=== PATIENT | male | born 1960 | race African-American/Black ===

== ENCOUNTER 2024-01-29 10:04 | Outpatient (AMB) | payer MEDICARE, MEDICAID, SELFPAY ==
[2024-01-29 10:05] VITALS: BP 130/100; PULSE 86; TEMP 36.3; O2SAT 97; BMI 38.4
--- NOTE | 2024-01-29 10:05 | MHC.OFFWIV ---
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) Intake Note: pt is here today for rash on both hands started 2 weeks Patient Tobacco Use Status: Current everyday Tobacco user Allergies No Known Allergies Allergy (Verified 01/29/24 10:11) Medication List - Last Reconciled 01/29/24 by DAVIDE Jeronimo atorvastatin 40 mg PO DAILY cetirizine 10 mg PO DAILY cholecalciferol (vitamin D3) 50 mcg PO DAILY clonidine HCl mg PO DAILY docusate sodium 100 mg PO BID fluticasone propionate 50 mcg/actuation sprays intranasal multivitamin with folic acid 400 mcg (Tab-A-Zander) 1 tab PO DAILY quetiapine 400 mg PO BEDTIME quetiapine 100 mg PO BEDTIME venlafaxine ER 150 mg PO DAILY venlafaxine ER 75 mg PO DAILY Do you need a note to return to daycare/school/sports/work: No HPI HPI Comments History of Present Illness Details Patient is a 63-year-old male in today for sick visit. He states that 1 week prior to visit he woke up from sleeping overnight and noticed he had what he thought was a bug bite on the dorsal aspect of his right hand. He states that since that he has developed a rash over his 1st and 2nd knuckles on the right hand. Up he also reports a rash now developing on his left hand in the same area, however he did not notice any bug bite. Patient has history of psoriasis. States that the rashes have a slight burning feeling. Has not used any medication or creams for relief. Patient denies numbness or tingling. 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 Patient has full range of motion. No erythema or discharge, no signs of infection. [facility] Medical History (Updated 01/29/24 @ 10:36 by DAVIDE Jeronimo) Depression PTSD (post-traumatic stress disorder) Social History Patient Tobacco Use Status: Current everyday Tobacco user Review of Systems Const All systems reviewed & are unremarkable except as noted in HPI and below Neuro Denies Sensory deficit (Neuro) Physical Exam Vital Signs: Last Vital Signs Temp 97.3 F 01/29/24 10:05 Pulse 86 01/29/24 10:05 BP 130/100 H 01/29/24 10:05 Pulse Ox 97 01/29/24 10:05 Oxygen Delivery Method Room Air 01/29/24 10:05 BMI result Body Mass Index 38.4 Const General: cooperative and no acute distress Orientation/consciousness: patient oriented x3 Limitations: no limitations Resp Effort & Inspection: normal respiratory effort Skin General skin exam: dry skin (bilateral hands. ), no erythema, no purpura and other (scaling) Neuro General: patient oriented x3 Motor exam (neuro): 5/5 motor strength present throughout Sensory Exam: No Sensory deficit (Neuro) Psych Thought content: Normal thought content present Insight: Good insight present (Psych) Judgement: Good judgement present (Psych) Assessment & Plan Assessment & Plan (1) Psoriasis: Comment: Will give clobetasol topical cream. Code(s): L40.9 - Psoriasis, unspecified Plan: Take your medications as prescribed. If you were prescribed antibiotics today, it is important that you take your medication to their entirety, do not skip any doses, do not finish them early. Follow-up with your primary care provider this week. Return to the emergency department with new or worsening symptoms. Such as fevers, chills, chest pain, shortness of breath, nausea, vomiting, dizziness, headache, vision changes, lethargy In case of emergency call 911 Plan follow up with pcp. Medications: New ibuprofen 400 mg PO Q8H PRN 30 tabs 0RF pain clobetasol 0.05% 1 appl topical BID 2 weeks 30 grams 0RF Coding Level of Care Code Est Pt Level 3 (28754) Diagnoses Psoriasis L40.9 Time Spent (min) 27
[2024-01-29 10:33] VITALS: BP 118/80
== END 2024-01-29 10:35 | disposition home or self-care (01) ==
PROVIDERS: Visit Provider Nurse Practitioner Primary Care
DX: L40.9 Psoriasis, unspecified (principal)
CPT/HCPCS: 99213

== ENCOUNTER 2024-02-10 09:57 | Emergency (ER) | payer MEDICARE, MEDICAID, SELFPAY ==
[2024-02-10 10:08] VITALS: BP 138/88; PULSE 84; RESP 18; TEMP 36.6; O2SAT 98; BMI 38.0
[2024-02-10 10:46] LABS: MANUAL DIFF FLAG NO
[2024-02-10 10:47] LABS: Basophils Percent Auto 0.5 % (0-2); Eosinophils Absolute Auto 0.1 X10*3/uL (0.0-0.4); Eosinophils Percent Auto 2.3 % (0-4); Hematocrit 42.4 % (42.0-52.0); Hemoglobin 14.6 g/dl (14.0-18.0); Imm Gran Abs Auto 0.03 X10*3/uL (0.00-0.03); Imm Gran Pct Auto 0.5 % (0.0-0.4); Lymphocytes Absolute Auto 1.8 X10*3/uL (1.2-4.9); Lymphocytes Percent Auto 32.3 % (20-40); Mean Corpuscular HGB Conc 34.4 g/dl (31.0-36.0); Mean Corpuscular Hemoglobin 30.9 pg (27.0-33.0); Mean Corpuscular Volume 89.6 fL (80.0-98.0); Mean Platelet Volume 9.7 fL (9.4-12.4); Monocytes Absolute Auto 0.4 X10*3/uL (0.1-1.2); Monocytes Percent Auto 7.8 % (2-11); Neutrophils Absolute Auto 3.2 x10*3/uL (2.0-8.3); Neutrophils Percent Auto 56.6 % (45-73); Platelet Count 170 X10*3/uL (160-400); Red Blood Count 4.73 X10*6/uL (4.60-5.80); Red Cell Distribution Width 13.9 % (11.0-16.0); White Blood Count 5.6 X10*3/uL (4.8-10.8)
[2024-02-10 11:12] LABS: Alanine Aminotransferase 22 U/L (0-40); Albumin Level 3.9 g/dL (3.5-5.0); Alkaline Phosphatase 101 U/L (39-117); Anion Gap 16 (12-20); Aspartate Amino Transferase 22 U/L (5-37); Bilirubin Total 0.4 mg/dL (0.0-1.0); Blood Urea Nitrogen 12 mg/dL (9-16); Calcium 9.4 mg/dL (8.4-10.2); Carbon Dioxide 20 mmol/L (22-29); Chloride 107 mmol/L (96-108); Creatinine Clr Calc Pharmacy 126.9; Estimated Glomerular Filt Rate > 60; Glucose Random 151 mg/dL (60-115); Potassium 3.9 mmol/L (3.3-5.1); Sodium 139 mmol/L (135-145); Total Protein 7.8 g/dL (6.5-8.0)
--- NOTE | 2024-02-10 14:27 | ED.GENADULT ---
HPI - General Adult General Chief complaint: Dental/Oral Stated complaint: Facial swelling R side, tingling R hand Time Seen by Provider: 02/10/24 13:01 Source: patient and RN notes reviewed Mode of arrival: ambulatory Limitations: no limitations History of Present Illness ED Provider: Facial swelling, rash HPI narrative: This is a 63 year old male, with a history of schizophrenia, who presents to the emergency department with complaints of right sided facial swelling, eye drainage and ?rash to right hand and left hand. Patient states that about a week and a half ago he felt as if he was bit by an insect. He states that he notice area of swelling and went to a walk in clinic where they attributed rash to a fungus and prescribed his antifungal cream. He states he is now seeing a rash on his bilateral hands. No itchiness or pain to rash. He also states that two days ago he woke up and felt some eye drainage from his right eye with tingling like sensation to his entire face. Reporting some congestion. He broke a tooth 1 year ago on the right upper side - unsure if this is related, no dental pain. He denies any fevers, chills, difficulty swallowing, shortness of breath, abdominal pain, nausea, vomiting, or diarrhea. He denies taking any medications at home to treat his current symptoms. Denies history of similar symptoms in the past. no other complaints are concerns at this time. MD complaint: rash Onset (ago): day(s) Location: face and upper extremity Radiation: non-radiation Relieving factors: none Exacerbating factors: none Associated symptoms: denies other symptoms Treatments prior to arrival: none Related Data Home Medications ?Medication ?Instructions ?Recorded ?Confirmed atorvastatin 40 mg tablet 40 mg PO DAILY 01/29/24 01/29/24 cetirizine 10 mg tablet 10 mg PO DAILY 01/29/24 01/29/24 cholecalciferol (vitamin D3) 50 50 mcg PO DAILY 01/29/24 01/29/24 mcg (2,000 unit) tablet clonidine HCl 0.1 mg tablet mg PO DAILY 01/29/24 01/29/24 docusate sodium 100 mg capsule 100 mg PO BID 01/29/24 01/29/24 fluticasone propionate 50 spray intranasal 01/29/24 01/29/24 mcg/actuation nasal spray,suspension multivitamin with folic acid 400 1 tab PO DAILY 01/29/24 01/29/24 mcg tablet (Tab-A-Zander) quetiapine 100 mg tablet 100 mg PO BEDTIME 01/29/24 01/29/24 quetiapine 400 mg tablet 400 mg PO BEDTIME 01/29/24 01/29/24 venlafaxine 150 mg 150 mg PO DAILY 01/29/24 01/29/24 capsule,extended release 24 hr venlafaxine 75 mg capsule,extended 75 mg PO DAILY 01/29/24 01/29/24 release 24 hr Previous Rx's ?Medication ?Instructions ?Recorded clobetasol 0.05 % topical cream 1 appl topical BID 2 weeks #30 01/29/24 grams ibuprofen 400 mg tablet 400 mg PO Q8H PRN pain #30 tabs 01/29/24 amoxicillin 875 mg-potassium 1 tab PO BID 7 days #14 tabs 02/10/24 clavulanate 125 mg tablet diphenhydramine HCl 25 mg tablet 25 - 50 mg (1 - 2 x 25 mg) PO 02/10/24 (Benadryl Allergy) Q6-8H PRN allergy symptoms #20 tabs prednisone 20 mg tablet 40 mg (2 x 20 mg) PO DAILY 5 days 02/10/24 #10 tabs Allergies Allergy/AdvReac Type Severity Reaction Status Date / Time No Known Allergies Allergy Verified 02/10/24 10:32 Review of Systems Review of Systems: Yes all other systems are reviewed and are negative Constitutional: Constitutional: Reports as per [facility] Past Medical History Medical History (Updated 02/11/24 @ 00:01 by Carlos Moreno) Depression PTSD (post-traumatic stress disorder) Social History Social History Patient Tobacco Use Status: Current everyday Tobacco user Advance Directives: No Advance Directives Information Provided: No Physical Exam ED Vital Signs: Vital Signs - 24 hr 02/10/24 10:08 02/10/24 15:25 Temperature 98 F 97.6 F Pulse Rate 84 69 Respiratory Rate 18 20 Blood Pressure 138/88 141/94 H Pulse Oximetry 98 97 Oxygen Delivery Method Room Air Room Air BMI result Body Mass Index 38.0 Const General: cooperative, comfortable and no acute distress Orientation/consciousness: patient oriented x3 Limitations: no limitations HENMT Other: No obvious facial swelling, erythema or rash present. Very minimal right upper eyelid edema noted. Conjunctiva is noninjected. Sinuses with mild ttp overlying maxillary sinuses. Oral pharynx wildly patent, speaking in full sentences. Dentition in poor repair, no TTP throughout teeth, no dental abscess noted. Facial sensation intact - however reporting decreased throughout. Head: Yes normal to inspection, Yes normocephalic and Yes atraumatic Ears: hearing grossly normal bilaterally General nose exam: Normal external nose present Face and sinus: Yes normal facial exam Mouth: Normal oral and palatal mucosa present, oropharynx normal and moist mucous membranes Throat: Yes posterior oropharynx normal Eyes General: appearance normal, both eyes and all related structures Eyelids: Yes eyelids normal Conjunctivae: conjunctivae normal Sclerae: sclerae normal Pupils: Equal, round and reactive pupils present EOM: EOMs intact bilaterally Neck Neck: Yes normal visual inspection, Yes full ROM and Yes no lymphadenopathy Lymphatic: no lymphadenopathy noted Chest Chest palpation & inspection: normal inspection of the chest Resp Effort & Inspection: normal respiratory effort and able to speak in complete sentences Auscultation: clear to auscultation bilaterally, no crackles, no rales, no rhonchi and no wheezes Cardio Rate: regular rate Rhythm: regular rhythm Heart sounds: S1 normal heart sound present and S2 normal heart sound present GI Inspection: Yes normal to inspection Skin Other: dorsum of bilateral hands, overlying the wrist there are approximately 3cm macular rash, blanchable, with slight hypopigmentation, no erythema or warmth, no raised borderers, no drainage. Neuro General: patient oriented x3 and moves all extremities Cranial nerves: Yes CN's II-XII intact bilaterally and Yes Equal, round and reactive pupils present Cognition (Neuro): normal cognition Gait exam (Neuro): Normal gait present Motor exam (neuro): 5/5 motor strength present throughout and Pronator motor function not present Coordination: [id number] test normal and [id number] test normal Romberg Test: Negative Extrem General: Yes normal to inspection Right upper extremity: normal to inspection Left upper extremity: normal to inspection Right lower extremity: normal to inspection Left lower extremity: normal to inspection Medical Decision Making Medical Decision Making MDM Narrative: 63 y/o M presenting to the ER with multiple complaints. He is alert and oriented x 4. Neurologically intact. BL wrists with macular rash with surrounding hypopigmentation, as well as slight edema noted to right eyelid with some TTP overlying the maxilla. DDX sinusitus, contact dermatitis, atopic dermatitis, cellulitis. He expresses tingling throughout face without any neurologic deficits. No dental abscess. Vitals are stable. Labs reasurring. Slight hyperglycemia - pt advised to f/u with PCP. Will treat as possible allergic vs sinusitis like symptoms with course of prednisone and antibiotics. Given strict return precautions. He understands and agrees with plan. Stable for d/c. Differential Diagnosis Differential Diagnoses: The differential diagnosis associated with the presentation includes see above Lab Data MDM Lab Attestation statement: I reviewed the patient's lab results. No leukocytosis, stable H&H, mild hyperglycemia at 151 02/10/24 10:42 02/10/24 10:42 Labs: Lab Results 02/10/24 Range/Units 10:42 WBC 5.6 (4.8-10.8) X10*3/uL RBC 4.73 (4.60-5.80) X10*6/uL Hgb 14.6 (14.0-18.0) g/dl Hct 42.4 (42.0-52.0) % MCV 89.6 (80.0-98.0) fL MCH 30.9 (27.0-33.0) pg MCHC 34.4 (31.0-36.0) g/dl RDW 13.9 (11.0-16.0) % Plt Count 170 (160-400) X10*3/uL MPV 9.7 (9.4-12.4) fL Immature Gran % (Auto) 0.5 H (0.0-0.4) % Neut % (Auto) 56.6 (45-73) % Lymph % (Auto) 32.3 (20-40) % [place] % (Auto) 7.8 (2-11) % Eos % (Auto) 2.3 (0-4) % Baso % (Auto) 0.5 (0-2) % Lymph # (Auto) 1.8 (1.2-4.9) X10*3/uL [place] # (Auto) 0.4 (0.1-1.2) X10*3/uL Eos # (Auto) 0.1 (0.0-0.4) X10*3/uL Baso # (Auto) 0.0 (0.0-0.2) X10*3/uL Abs Immat Gran (auto) 0.03 (0.00-0.03) X10*3/uL Absolute Neuts (auto) 3.2 (2.0-8.3) x10*3/uL Absolute Nucleated RBC 0.000 (0.0-0.012) X10*3/uL Nucleated RBC % (auto) 0.0 (0.0-0.2) /100WBC Sodium 139 (135-145) mmol/L Potassium 3.9 (3.3-5.1) mmol/L Chloride 107 (96-108) mmol/L Carbon Dioxide 20 L (22-29) mmol/L Anion Gap 16 (12-20) BUN 12 (9-16) mg/dL Creatinine 0.94 (0.5-1.4) mg/dL Estim Creat Clear Calc 126.9 Estimated GFR > 60 Random Glucose 151 H (60-115) mg/dL Calcium 9.4 (8.4-10.2) mg/dL Total Bilirubin 0.4 (0.0-1.0) mg/dL AST 22 (5-37) U/L ALT 22 (0-40) U/L Alkaline Phosphatase 101 (39-117) U/L Total Protein 7.8 (6.5-8.0) g/dL Albumin 3.9 (3.5-5.0) g/dL Discharge Plan Discharge Clinical Impression: Facial swelling, Rash Patient Disposition: Home, Self-Care Instructions: Acute Rash (ED) Additional Instructions: You may be experiencing a type of allergic reaction, however I am also treating you for possible sinus infection. Please take prescribed medication as directed, take antibiotic as prescribed. Take prednisone as directed. Please be advised that this can increase your blood glucose level. I am also prescribing Benadryl, this can cause drowsiness, do not drink alcohol or drive while taking this medication. Drink plenty of fluids get plenty of rest. Follow-up with your primary care physician. If any new or worsening symptoms occur including but not limited to severe headaches, dizziness, lightheadedness, blurred vision, worsening swelling or numbness and tingling, please return for re-evaluation. Prescriptions: New amoxicillin-pot clavulanate 875-125 mg tablet 1 tab PO BID 7 Days Qty: 14 0RF prednisone 20 mg tablet 40 mg PO DAILY 5 Days Qty: 10 0RF diphenhydramine HCl [Benadryl Allergy] 25 mg tablet 25 - 50 mg PO Q6-8H PRN (Reason: allergy symptoms) Qty: 20 0RF No Action cholecalciferol (vitamin D3) 50 mcg (2,000 unit) tablet 50 mcg PO DAILY docusate sodium 100 mg capsule 100 mg PO BID quetiapine 400 mg tablet 400 mg PO BEDTIME fluticasone propionate 50 mcg/actuation spray,suspension intranasal quetiapine 100 mg tablet 100 mg PO BEDTIME venlafaxine 150 mg capsule,extended release 24hr 150 mg PO DAILY venlafaxine 75 mg capsule,extended release 24hr 75 mg PO DAILY atorvastatin 40 mg tablet 40 mg PO DAILY clonidine HCl 0.1 mg tablet PO DAILY cetirizine 10 mg tablet 10 mg PO DAILY multivitamin with folic acid [Tab-A-Zander] 400 mcg tablet 1 tab PO DAILY clobetasol 0.05 % cream 1 appl topical BID 14 Days Qty: 30 0RF ibuprofen 400 mg tablet 400 mg PO Q8H PRN (Reason: pain) Qty: 30 0RF Interventions: ED Discharge Assessment Last Done: 02/10/24 15:25 Discharge Date/Time: 02/10/24 15:26 Print Language: Namibian
[2024-02-10 15:25] VITALS: BP 141/94; PULSE 69; RESP 20; TEMP 36.4; O2SAT 97
== END 2024-02-10 15:26 | disposition home or self-care (01) ==
PROVIDERS: Emergency Provider Student in an Organized Health Care Education/Training Program; PCP Physician Assistant
DX: R21 Rash and other nonspecific skin eruption (principal); R22.0 Localized swelling, mass and lump, head
CPT/HCPCS: 36415; 80053; 85025; 99282; 99283

== ENCOUNTER 2024-03-25 13:30 | Emergency (ER) | payer MEDICARE, MEDICAID, SELFPAY ==
[2024-03-25 14:52] VITALS: BP 140/75; PULSE 86; RESP 18; TEMP 36.8; O2SAT 96; BMI 37.6
[2024-03-25 15:00] VITALS: BP 140/75; PULSE 86; RESP 18; TEMP 36.8; O2SAT 96
--- NOTE | 2024-03-25 15:56 | ED_ITS ---
HPI - General Adult General Chief complaint: Dental/Oral Stated complaint: mouth problems Time Seen by Provider: 03/25/24 14:53 Source: patient, RN notes reviewed and old records reviewed Mode of arrival: ambulatory Limitations: no limitations History of Present Illness ED Provider: Arin HPI narrative: 63-year-old male presents for evaluation of right upper facial pain. He reports that he fractured the tooth a few weeks ago. He was actually seen here last month and given Augmentin, Benadryl and prednisone for a dental fracture and a sinus infection He called his dentist and was given appointment for 03/25/2024. However 2 days ago his pain returned He called his dentist again and was told he needs to have his appointment rescheduled and to go to the hospital to get more antibiotics before he can be seen by the dentist Related Data Home Medications ?Medication ?Instructions ?Recorded ?Confirmed atorvastatin 40 mg tablet 40 mg PO DAILY 01/29/24 01/29/24 cetirizine 10 mg tablet 10 mg PO DAILY 01/29/24 01/29/24 cholecalciferol (vitamin D3) 50 50 mcg PO DAILY 01/29/24 01/29/24 mcg (2,000 unit) tablet clonidine HCl 0.1 mg tablet mg PO DAILY 01/29/24 01/29/24 docusate sodium 100 mg capsule 100 mg PO BID 01/29/24 01/29/24 fluticasone propionate 50 spray intranasal 01/29/24 01/29/24 mcg/actuation nasal spray,suspension multivitamin with folic acid 400 1 tab PO DAILY 01/29/24 01/29/24 mcg tablet (Tab-A-Zander) quetiapine 100 mg tablet 100 mg PO BEDTIME 01/29/24 01/29/24 quetiapine 400 mg tablet 400 mg PO BEDTIME 01/29/24 01/29/24 venlafaxine 150 mg 150 mg PO DAILY 01/29/24 01/29/24 capsule,extended release 24 hr venlafaxine 75 mg capsule,extended 75 mg PO DAILY 01/29/24 01/29/24 release 24 hr Previous Rx's ?Medication ?Instructions ?Recorded clobetasol 0.05 % topical cream 1 appl topical BID 2 weeks #30 01/29/24 grams ibuprofen 400 mg tablet 400 mg PO Q8H PRN pain #30 tabs 01/29/24 amoxicillin 875 mg-potassium 1 tab PO BID 7 days #14 tabs 02/10/24 clavulanate 125 mg tablet diphenhydramine HCl 25 mg tablet 25 - 50 mg (1 - 2 x 25 mg) PO 02/10/24 (Benadryl Allergy) Q6-8H PRN allergy symptoms #20 tabs prednisone 20 mg tablet 40 mg (2 x 20 mg) PO DAILY 5 days 02/10/24 #10 tabs amoxicillin 875 mg-potassium 1 tab PO Q12H #20 tabs 03/25/24 clavulanate 125 mg tablet ibuprofen 600 mg tablet 600 mg PO Q6H PRN pain #20 tabs 03/25/24 tramadol 50 mg tablet 50 mg PO Q8H PRN pain #12 tabs 03/25/24 Allergies Allergy/AdvReac Type Severity Reaction Status Date / Time No Known Allergies Allergy Verified 03/25/24 14:55 Review of Systems Constitutional: Constitutional: Denies body ache(s), Denies chills, Denies fever(s) and Denies headache(s) ENT: Reports otalgia, Reports facial pain, Denies headache(s) and Denies sore throat Cardiovascular: Cardiovascular: Denies chest pain and Denies dyspnea Respiratory: Respiratory: Denies cough and Denies dyspnea Gastrointestinal: Gastrointestinal: Denies abdominal pain Neurologic: Denies headache(s) ON LICENSE OF [facility] Past Medical History Medical History (Updated 03/25/24 @ 14:56 by Ricardo Hinkle) Depression PTSD (post-traumatic stress disorder) Social History Social History Unable to assess alcohol history related to: Unknown Patient Tobacco Use Status: Current everyday Tobacco user Smoked in Last 30 Days: No Use of substances other than those prescribed or required for medical reasons: No Advance Directives: No Advance Directives Information Provided: No Do you have a plan to hurt others: No Plan Physical Exam ED Vital Signs: Vital Signs - 24 hr 03/25/24 14:52 03/25/24 15:00 Temperature 98.3 F 98.3 F Pulse Rate 86 86 Respiratory Rate 18 18 Blood Pressure 140/75 H 140/75 H Pulse Oximetry 96 96 Oxygen Delivery Method Room Air Room Air BMI result Body Mass Index 37.6 Const General: healthy appearing, comfortable, no acute distress, alert and awake Nutritional Appearance: well nourished Orientation/consciousness: patient oriented x3 HENMT Other: Multiple dental caries, dental fracture of tooth 5.. There is gingival edema in this area. No obvious dental abscess Head: Yes normocephalic and Yes atraumatic Eyes Eyelids: Yes eyelids normal Conjunctivae: conjunctivae normal Sclerae: sclerae normal Corneas: corneas normal Pupils: Equal, round and reactive pupils present EOM: EOMs intact bilaterally Neck Neck: Yes full ROM Resp Effort & Inspection: normal respiratory effort, able to speak in complete sentences and not labored Skin General skin exam: elasticity normal Neuro General: patient oriented x3 Cranial nerves: Yes Equal, round and reactive pupils present and Yes Bilaterally intact EOM present Cognition (Neuro): normal cognition Extrem Other: Moving all extremities well without any obvious deformities Medical Decision Making Medical Decision Making [facility] Narrative: Patient has multiple dental caries, poor dental hygiene and likely acute dental infection. There is no obvious drainable abscess. We will put the patient back on Augmentin until he is seen by his dentist next week Differential Diagnosis Differential Diagnoses: The differential diagnosis associated with the presentation includes Dental caries Facial pain Dental trauma Dental abscess Discharge Plan Discharge Clinical Impression: Dental caries, Fracture of tooth Patient Disposition: Home, Self-Care Instructions: Toothache (ED), Tooth Extraction (DC) Additional Instructions: Take Augmentin twice daily for the next 10 days Apply warm compresses every 4 hours Use ibuprofen as needed for pain You may use tramadol for more severe breakthrough pain This may make you sleepy, did not drink alcohol or drive after taking it Prescriptions: New amoxicillin-pot clavulanate 875-125 mg tablet 1 tab PO Q12H Qty: 20 0RF ibuprofen 600 mg tablet 600 mg PO Q6H PRN (Reason: pain) Qty: 20 0RF tramadol 50 mg tablet 50 mg PO Q8H PRN (Reason: pain) Qty: 12 0RF No Action amoxicillin-pot clavulanate 875-125 mg tablet 1 tab PO BID 7 Days Qty: 14 0RF prednisone 20 mg tablet 40 mg PO DAILY 5 Days Qty: 10 0RF diphenhydramine HCl [Benadryl Allergy] 25 mg tablet 25 - 50 mg PO Q6-8H PRN (Reason: allergy symptoms) Qty: 20 0RF cholecalciferol (vitamin D3) 50 mcg (2,000 unit) tablet 50 mcg PO DAILY docusate sodium 100 mg capsule 100 mg PO BID quetiapine 400 mg tablet 400 mg PO BEDTIME fluticasone propionate 50 mcg/actuation spray,suspension intranasal quetiapine 100 mg tablet 100 mg PO BEDTIME venlafaxine 150 mg capsule,extended release 24hr 150 mg PO DAILY venlafaxine 75 mg capsule,extended release 24hr 75 mg PO DAILY atorvastatin 40 mg tablet 40 mg PO DAILY clonidine HCl 0.1 mg tablet PO DAILY cetirizine 10 mg tablet 10 mg PO DAILY multivitamin with folic acid [Tab-A-Zander] 400 mcg tablet 1 tab PO DAILY clobetasol 0.05 % cream 1 appl topical BID 14 Days Qty: 30 0RF ibuprofen 400 mg tablet 400 mg PO Q8H PRN (Reason: pain) Qty: 30 0RF Interventions: ED Discharge Assessment Last Done: 03/25/24 15:00 Discharge Date/Time: 03/25/24 15:27 Print Language: Finnish
== END 2024-03-25 15:27 | disposition home or self-care (01) ==
LOC: HO.ED 15:27
PROVIDERS: Emergency Provider Emergency Medicine; PCP Physician Assistant
DX: K02.9 Dental caries, unspecified (principal); S02.5XXA Fracture of tooth (traumatic), initial encounter for closed fracture; X58.XXXA Exposure to other specified factors, initial encounter; Y93.9 Activity, unspecified; Y92.9 Unspecified place or not applicable; Y99.9 Unspecified external cause status
CPT/HCPCS: 99283

== ENCOUNTER 2024-05-05 11:34 | Emergency (ER) | payer MEDICARE, MEDICAID, SELFPAY ==
[2024-05-05 12:31] VITALS: BP 129/79; PULSE 99; RESP 16; TEMP 36.6; O2SAT 95; BMI 38.0
--- NOTE | 2024-05-05 12:32 | ED_ITS ---
HPI - Dental/Oral General Chief complaint: Dental/Oral Stated complaint: Dental Infection Time Seen by Provider: 05/05/24 12:36 Source: patient Mode of arrival: ambulatory Limitations: no limitations History of Present Illness ED Provider: Sundar Helm PA-C HPI Narrative: 63 yo male presents to ER for evaluation of 3 days of lower dental pain and a knot on the gums. He states he has an appointment with his dentist on May 14. He reports swelling of his lower gums and associated pain. Pain is worse with eating. He recently had a root canal of his upper tooth and was on clindam ycin for this. That has since resolved. Patient denies any fever or chills. No facial swelling. He ran out of his motrin and tylenol extra strength. MD Complaint: tooth pain Location: Tooth # ([id number]) Onset (ago): day(s) (3) Duration: constant Severity: severe Relieving factors: NSAIDs Exacerbating factors: chewing Context: history of dental caries and poor dental care Associated symptoms: gum swelling Treatment prior to arrival: none Related Data Home Medications ?Medication ?Instructions ?Recorded ?Confirmed atorvastatin 40 mg tablet 40 mg PO DAILY 01/29/24 01/29/24 cetirizine 10 mg tablet 10 mg PO DAILY 01/29/24 01/29/24 cholecalciferol (vitamin D3) 50 50 mcg PO DAILY 01/29/24 01/29/24 mcg (2,000 unit) tablet clonidine HCl 0.1 mg tablet mg PO DAILY 01/29/24 01/29/24 docusate sodium 100 mg capsule 100 mg PO BID 01/29/24 01/29/24 fluticasone propionate 50 spray intranasal 01/29/24 01/29/24 mcg/actuation nasal spray,suspension multivitamin with folic acid 400 1 tab PO DAILY 01/29/24 01/29/24 mcg tablet (Tab-A-Zander) quetiapine 100 mg tablet 100 mg PO BEDTIME 01/29/24 01/29/24 quetiapine 400 mg tablet 400 mg PO BEDTIME 01/29/24 01/29/24 venlafaxine 150 mg 150 mg PO DAILY 01/29/24 01/29/24 capsule,extended release 24 hr venlafaxine 75 mg capsule,extended 75 mg PO DAILY 05/14/24 05/14/24 release 24 hr Previous Rx's ?Medication ?Instructions ?Recorded clobetasol 0.05 % topical cream 1 appl topical BID 2 weeks #30 01/29/24 grams ibuprofen 400 mg tablet 400 mg PO Q8H PRN pain #30 tabs 01/29/24 amoxicillin 875 mg-potassium 1 tab PO BID 7 days #14 tabs 02/10/24 clavulanate 125 mg tablet diphenhydramine HCl 25 mg tablet 25 - 50 mg (1 - 2 x 25 mg) PO 02/10/24 (Benadryl Allergy) Q6-8H PRN allergy symptoms #20 tabs prednisone 20 mg tablet 40 mg (2 x 20 mg) PO DAILY 5 days 02/10/24 #10 tabs amoxicillin 875 mg-potassium 1 tab PO Q12H #20 tabs 03/25/24 clavulanate 125 mg tablet ibuprofen 600 mg tablet 600 mg PO Q6H PRN pain #20 tabs 03/25/24 tramadol 50 mg tablet 50 mg PO Q8H PRN pain #12 tabs 03/25/24 acetaminophen 500 mg tablet 1,000 mg (2 x 500 mg) PO Q6H PRN 05/05/24 (Tylenol Extra Strength) pain #30 tabs amoxicillin 875 mg-potassium 1 tab PO BID #20 tabs 05/05/24 clavulanate 125 mg tablet chlorhexidine gluconate 0.12 % 15 ml buccal BID #473 mL 05/05/24 mouthwash (Periogard) ibuprofen 800 mg tablet 800 mg PO Q8H PRN pain #14 tabs 05/05/24 Allergies Allergy/AdvReac Type Severity Reaction Status Date / Time No Known Allergies Allergy Verified 05/05/24 12:34 Review of Systems Review of Systems: Yes all other systems are reviewed and are negative PMFSH Past Medical History Medical History (Updated 05/05/24 @ 12:37 by AUDRA Perry) Depression PTSD (post-traumatic stress disorder) Social History Social History Unable to assess alcohol history related to: Unknown Patient Tobacco Use Status: Current everyday Tobacco user Advance Directives: No Advance Directives Information Provided: No Physical Exam Vital Signs: Vital Signs: Last Vital Signs Temp 97.8 F 08/19/24 12:31 Pulse 99 05/05/24 12:31 Resp 16 05/05/24 12:31 BP 129/79 05/05/24 12:31 Pulse Ox 95 05/05/24 12:31 O2 Del Method Room Air 05/05/24 12:31 BMI result Body Mass Index 38.0 Appearance: Alert. Oriented X3. No acute distress. Head/face: normocephalic, atraumatic. Eyes: Pupils equal, round and reactive to light. ENT: Pharynx with moist mucus membranes. No tonsillar swelling or exudate. poor dentition. multiple missing teeth. bottom anterior lower teeth with redeeding gums and associated gingival hyperplasia and erythema, no fluctuance or signficant swelling Neck: Normal inspection. Neck supple. CVS: Normal heart rate and rhythm. Pulses normal. Respiratory: No respiratory distress. Breath sounds normal. Skin: Skin warm and dry. Normal skin color. Normal skin turgor. No rashes. Extremities: No lower extremity edema. No joint swelling. Neuro/psych: Oriented X 3. Grossly normal, nonfocal Medical Decision Making Medical Decision Making MDM Narrative: 63-year-old male presents to the ER for evaluation of central lower gum pain and swelling for the last 3 days. On examination he has significant gingival hyperplasia with receding gums, tenderness at the base with out evidence of drainable abscess at this time. Neck is normal to inspection without any evidence of El's angina or neck involvement. No facial swelling, no trismus on examination. He sees his dentist on the . At this time he is stable to be discharged home with oral antibiotics and pain control. He was given return precautions. Stable for discharge home with outpatient follow-up with dental Differential Diagnosis Differential Diagnoses: The differential diagnosis associated with the presentation includes dental abscess, gingivitis, dental caries, dental trauma External Record Review External record reviewed: Outpatient record, Prior outpatient labs and Prior outpatient radiology Prescription Management I considered prescription management with: Pain Medication and Antibiotic Chronic Conditions Patient?s care impacted by: Other (poor dentition) Critical Care Time Critical Care Time Critical Care Time: No Discharge Plan Discharge Clinical Impression: Toothache, Gingivitis Patient Disposition: Home, Self-Care Instructions: Toothache (ED), Periodontal Disease (DC) Additional Instructions: Take the prescribed antibiotics as directed, complete the entire course and do not miss any doses Follow up with your dentist on the 05/14 as scheduled If you develop new or worsening symptoms call 911 or come back to the ER for further evaluation. Prescriptions: New amoxicillin-pot clavulanate 875-125 mg tablet 1 tab PO BID Qty: 20 0RF ibuprofen 800 mg tablet 800 mg PO Q8H PRN (Reason: pain) Qty: 14 0RF acetaminophen [Tylenol Extra Strength] 500 mg tablet 1,000 mg PO Q6H PRN (Reason: pain) Qty: 30 0RF chlorhexidine gluconate [Periogard] 0.12 % mouthwash 15 ml buccal BID Qty: 473 0RF No Action amoxicillin-pot clavulanate 875-125 mg tablet 1 tab PO Q12H Qty: 20 0RF ibuprofen 600 mg tablet 600 mg PO Q6H PRN (Reason: pain) Qty: 20 0RF tramadol 50 mg tablet 50 mg PO Q8H PRN (Reason: pain) Qty: 12 0RF amoxicillin-pot clavulanate 875-125 mg tablet 1 tab PO BID 7 Days Qty: 14 0RF prednisone 20 mg tablet 40 mg PO DAILY 5 Days Qty: 10 0RF diphenhydramine HCl [Benadryl Allergy] 25 mg tablet 25 - 50 mg PO Q6-8H PRN (Reason: allergy symptoms) Qty: 20 0RF cholecalciferol (vitamin D3) 50 mcg (2,000 unit) tablet 50 mcg PO DAILY docusate sodium 100 mg capsule 100 mg PO BID quetiapine 400 mg tablet 400 mg PO BEDTIME fluticasone propionate 50 mcg/actuation spray,suspension intranasal quetiapine 100 mg tablet 100 mg PO BEDTIME venlafaxine 150 mg capsule,extended release 24hr 150 mg PO DAILY venlafaxine 75 mg capsule,extended release 24hr 75 mg PO DAILY atorvastatin 40 mg tablet 40 mg PO DAILY clonidine HCl 0.1 mg tablet PO DAILY cetirizine 10 mg tablet 10 mg PO DAILY multivitamin with folic acid [Tab-A-Zander] 400 mcg tablet 1 tab PO DAILY clobetasol 0.05 % cream 1 appl topical BID 14 Days Qty: 30 0RF ibuprofen 400 mg tablet 400 mg PO Q8H PRN (Reason: pain) Qty: 30 0RF Print Language: Luxembourgish
== END 2024-05-05 12:48 | disposition home or self-care (01) ==
PROVIDERS: Emergency Provider Emergency Medicine; PCP Physician Assistant
DX: K08.89 Other specified disorders of teeth and supporting structures (principal); K05.10 Chronic gingivitis, plaque induced
CPT/HCPCS: 99281; 99283